=== PATIENT | male | born 1970 | race Caucasian/White ===

== ENCOUNTER → 2023-10-29 08:53 | Outpatient (REF) | payer OTHER, SELFPAY | LOC: RAD 08:53 | PROVIDERS: ATTENDING PHYSICIAN Orthopaedic Surgery; FAMILY PHYSICIAN Family Medicine | DX: S46.819S Strain of other muscles, fascia and tendons at shoulder and upper arm level, unspecified arm, sequela (principal) | CPT/HCPCS: 76882 ==